=== PATIENT | female | born 1990 | race Caucasian/White ===

== ENCOUNTER 2022-11-21 16:00 | Outpatient (CLI) | payer OTHER, SELFPAY ==
--- NOTE | ~2022-11-21 | US_ITS ---
CORRECTED REPORT exam description change [facility] 11/23/22 This report was recreated on 11/23/22. Original report was EXAMINATION: US OB <= 14 weeks fetus w TV DATE: 11/21/2022 17:07 INDICATION: Gestational dating. Evaluate viability. TECHNIQUE: Real-time transabdominal and transvaginal obstetric ultrasound. FINDINGS: No prior studies for comparison. The uterus measures 8.9 x 5.3 x 8 cm. There is an intrauterine gestational sac, with pole identified. The crown rump length measures 1.31 cm, which correlates with a estimated gestational age of 7 weeks 4 days. heart tones are identified measuring 139 BPM. Right ovary measures 3.7 x 1.8 x 1.9 cm. Left ovary measures 2.8 x 1.4 x 1 cm. There is normal Doppler signal in the ovaries. IMPRESSION: 1. SL IUP with an EGA of 7 weeks, 4 days (EDC by current ultrasound of 07/06/2023). Reviewed, dictated and finalized at location [] MTDD IMPRESSION: 1. SL IUP with an EGA of 7 weeks, 4 days (EDC by current ultrasound of ).
== END 2022-11-21 16:01 | disposition home or self-care (01) ==
PROVIDERS: Visit Provider Obstetrics & Gynecology
DX: Z36.89 Encounter for other specified antenatal screening (principal); Z3A.01 Less than 8 weeks gestation of pregnancy
CPT/HCPCS: 76801; 76817

== ENCOUNTER 2023-02-06 17:05 | Outpatient (CLI) | payer OTHER, SELFPAY | END 2023-02-06 17:06 | disposition home or self-care (01) | LOC: ANHLAB 17:07 | PROVIDERS: Visit Provider Obstetrics & Gynecology | DX: O23.41 Unspecified infection of urinary tract in pregnancy, first trimester (principal); B95.1 Streptococcus, group B, as the cause of diseases classified elsewhere; Z3A.00 Weeks of gestation of pregnancy not specified | CPT/HCPCS: 87086; 87088 ==